=== PATIENT | female | born 1990 | race Caucasian/White ===

== ENCOUNTER → 2016-11-02 | Outpatient (CLI) | payer OTHER | LOC: OD 14:29 | PROVIDERS: ATTEND Specialist | DX: M54.5 Low back pain (principal) | CPT/HCPCS: 36415; 84702 ==

== ENCOUNTER → 2016-11-04 | Outpatient (CLI) | payer OTHER | LOC: OD 13:46 | PROVIDERS: ATTEND Specialist | DX: M54.5 Low back pain (principal) | CPT/HCPCS: 36415; 84702 ==

== ENCOUNTER 2017-06-17 12:36 | Outpatient (CLI) | payer OTHER ==
[2017-06-17 13:15] LABS: APPEARANCE,URINE CLOUDY; BILIRUBIN,URINE NEGATIVE (NEGATIVE); COLOR,URINE YELLOW; GLUCOSE, URINE NEGATIVE (NEGATIVE); KETONES,URINE NEGATIVE (NEGATIVE); LEUKOCYTE ESTERASE,URINE LARGE (NEGATIVE); NITRITE,URINE NEGATIVE (NEGATIVE); PROTEIN,URINE NEGATIVE (NEGATIVE); URINE SPECIFIC GRAVITY 1.018; UROBILINOGEN,URINE NEGATIVE mg/dL (<2.0)
[2017-06-17 13:36] LABS: URINE AMPHETAMINES SCREEN NEGATIVE; URINE BARBITURATES SCREEN NEGATIVE; URINE BENZODIAZEPINES SCREEN NEGATIVE; URINE COCAINE SCREEN NEGATIVE; URINE MARIJUANA (THC) SCREEN NEGATIVE; URINE METHADONE SCREEN NEGATIVE; URINE PHENCYCLIDINE SCREEN NEGATIVE
--- NOTE | 2017-06-17 13:43 | Non Stress Test Report ---
Non Stress Test Datetime Report Generated by CPN: 06/17/2017 13:42 DEMOGRAPHIC EGA NST: 37.4 INDICATION Indication for Study: Decreased Movement MONITORING Monitor Explained: Monitor Explained; Test Explained Time on Monitor: 06/17/2017 13:00 Time off Monitor: 06/17/2017 13:25 NST Duration: 25 NST INTERVENTIONS NST Interventions: PO Hydration; Reposition Patient Physician Notified NST: Dr. Song BABY A: [id number] BABY A Movement : Present Contraction Frequency : None FHR Baseline : 135 Accelerations : 15X15 Decelerations : None Variability : Moderate 6-25bpm NST Review: Meets Criteria for Reactive NST NST Review and Verified By : Damion ANDREA NST Results: Reactive NST REPORT Report Trigger: Send Report
--- NOTE | 2017-06-17 14:12 | RADIOLOGY REPORT (SQ) ---
EXAM DESCRIPTION: U/S PROFILE W/O STRESS COMPLETED DATE/TIME: 06/17/2017 1:55 pm REASON FOR STUDY: decreased FM, Need BPP please COMPARISON: None. TECHNIQUE: Limited corcoran-scale realtime and static images of the fetus to measure specified parameter s. LIMITATIONS: None. FINDINGS: HEART RATE: 149 beats per minute. GRICELDA: 23 cm. BREATHING MOVEMENT: 2 points. MOVEMENT: 2 points. POSTURE AND TONE: 2 points. QUALITATIVE GRICELDA: 2 points. OTHER: No other significant finding. IMPRESSION: BIOPHYSICAL PROFILE: 01/04. Trimester of : Third - 28 weeks to delivery COMMENT: BREATHING MOVEMENTS: 2 POINTS: PRESENT 0 POINTS: ABSENT MOTION: 2 POINTS: PRESENT 0 POINTS: ABSENT TONE: 2 POINTS: PRESENT 0 POINTS: ABSENT AMNIOTIC FLUID VOLUME: 2 POINTS: LARGEST POCKET GREATER THAN 2 CM DEPTH. 0 POINTS: NO POCKET OF 2 CM. TECHNICAL DOCUMENTATION: JOB ID: [id number] [employer]- All Rights Reserved
== END 2017-06-17 14:15 | disposition home or self-care (01) ==
LOC: LC 12:36
PROVIDERS: ATTEND Student in an Organized Health Care Education/Training Program
PROC: 4A1HXCZ Monitoring of Products of Conception, Cardiac Rate, External Approach (ICD-10-PCS; principal; 2017-06-17)
DX: O36.8130 Decreased fetal movements, third trimester, not applicable or unspecified (principal); Z3A.37 37 weeks gestation of pregnancy
CPT/HCPCS: 76819; 80307; 81001

== ENCOUNTER 2017-06-23 09:22 | Outpatient (CLI) | payer OTHER ==
--- NOTE | 2017-06-23 09:55 | Non Stress Test Report ---
Non Stress Test Datetime Report Generated by CPN: 06/23/2017 09:54 DEMOGRAPHIC EGA NST: 38.3 INDICATION Indication for Study: Ordered by Provider Indication for Study (NST) Other: Non reactive in office MONITORING Monitor Explained: Monitor Explained; Test Explained; Patient Verbalized Understanding Time on Monitor: 06/23/2017 09:32 NST INTERVENTIONS NST Interventions: PO Hydration Physician Notified NST: Floyd BABY A: [id number] BABY A Movement : Present Contraction Frequency : 0 FHR Baseline : 125 Accelerations : 15X15 Decelerations : None Variability : Moderate 6-25bpm NST Review: Meets Criteria for Reactive NST NST Review and Verified By : D Bellavance RN NST Results: Reactive NST REPORT Report Trigger: Send Report
[2017-06-23 10:28] LABS: APPEARANCE,URINE SLIGHTLY-CLOUDY; BILIRUBIN,URINE NEGATIVE (NEGATIVE); COLOR,URINE YELLOW; GLUCOSE, URINE NEGATIVE (NEGATIVE); KETONES,URINE NEGATIVE (NEGATIVE); LEUKOCYTE ESTERASE,URINE SMALL (NEGATIVE); NITRITE,URINE NEGATIVE (NEGATIVE); PROTEIN,URINE NEGATIVE (NEGATIVE); URINE SPECIFIC GRAVITY 1.018; UROBILINOGEN,URINE NEGATIVE mg/dL (<2.0)
[2017-06-23 10:38] LABS: ABSOLUTE LYMPHOCYTES (AUTO) 1.8 10^3/uL (0.5-4.7); ABSOLUTE MONOCYTES (AUTO) 0.7 10^3/uL (0.1-1.4); ABSOLUTE NEUT (AUTO) 8.6 10^3/uL (1.7-8.2); BASOPHILS % (AUTO) 0.2 % (0-2); EOSINOPHILS % (AUTO) 0.1 % (0-6); HEMATOCRIT 35.8 % (36.0-47.0); HEMOGLOBIN 12.4 g/dL (12.0-15.5); LYMPHOCYTES % (AUTO) 16.1 % (13-45); MEAN CORPUSCULAR HGB CONC 34.5 g/dL (32.0-36.0); MEAN CORPUSCULAR VOLUME 93 fl (80-97); MONOCYTES % (AUTO) 6.1 % (3-13); PLATELET COUNT 141 10^3/uL (150-450); RED BLOOD COUNT 3.86 10^6/uL (3.72-5.28); RED CELL DISTRIBUTION WIDTH 13.6 % (11.5-14.0); SEGMENTED NEUTROPHILS % (AUTO) 77.5 % (42-78); TOTAL CELLS COUNTED % (AUTO) 100 %; WHITE BLOOD COUNT 11.1 10^3/uL (4.0-10.5)
[2017-06-23 10:43] LABS: URINE AMPHETAMINES SCREEN NEGATIVE; URINE BARBITURATES SCREEN NEGATIVE; URINE BENZODIAZEPINES SCREEN NEGATIVE; URINE COCAINE SCREEN NEGATIVE; URINE MARIJUANA (THC) SCREEN NEGATIVE; URINE METHADONE SCREEN NEGATIVE; URINE PHENCYCLIDINE SCREEN NEGATIVE
[2017-06-23 10:59] LABS: ALANINE AMINOTRANSFERASE 21 U/L (9-52); ALKALINE PHOSPHATASE 104 U/L (38-126); ANION GAP 7 (5-19); ASPARTATE AMINO TRANSFERASE 17 U/L (14-36); BILIRUBIN,DIRECT 0.2 mg/dL (0.0-0.4); BILIRUBIN,TOTAL 0.4 mg/dL (0.2-1.3); BLOOD UREA NITROGEN 9 mg/dL (7-20); CALCIUM 8.9 mg/dL (8.4-10.2); CARBON DIOXIDE 22 mmol/L (22-30); CHLORIDE 107 mmol/L (98-107); GLUCOSE 121 mg/dL (75-110); LDH 369 U/L (313-618); POTASSIUM 4.2 mmol/L (3.6-5.0); TOTAL PROTEIN 5.4 g/dL (6.3-8.2); URIC ACID 4.8 mg/dL (2.5-6.2)
[2017-06-23 11:08] LABS: UR PRO/CREAT RATIO RESULT 0.1 mg/mg (0.0-0.2); URINE CREATININE 122.5 mg/dL (16-327); URINE PROTEIN 7.7 mg/dL (<12)
== END 2017-06-23 11:20 | disposition home or self-care (01) ==
LOC: LC 09:22
PROVIDERS: ATTEND Obstetrics & Gynecology
PROC: 4A1HXCZ Monitoring of Products of Conception, Cardiac Rate, External Approach (ICD-10-PCS; principal; 2017-06-23)
DX: Z36.89 Encounter for other specified antenatal screening (principal); Z3A.38 38 weeks gestation of pregnancy
CPT/HCPCS: 36415; 59025; 80053; 80307; 81001; 82570; 83615; 84156; 84550; 85025

== ENCOUNTER 2017-07-11 06:28 | Inpatient (IN) | payer OTHER ==
[2017-07-11] MEDS ORDERED: PENICILLIN G POTASSIUM 5,000,000 UNIT in DEXTROSE 5%-WATER 100 ML IV ONE (06:30)
[2017-07-11] MEDS ORDERED: NORMAL SALINE IV PRN (06:30)
[2017-07-11] MEDS ORDERED: RINGERS SOLUTION,LACTATED 300 ML IV ONE (06:30)
[2017-07-11] MEDS ORDERED: RINGERS SOLUTION,LACTATED 1,000 ML IV PRN (06:30)
[2017-07-11] MEDS ORDERED: OXYTOCIN IV PRN (06:30)
[2017-07-11 07:04] LABS: APPEARANCE,URINE CLOUDY; BILIRUBIN,URINE NEGATIVE (NEGATIVE); COLOR,URINE YELLOW; GLUCOSE, URINE NEGATIVE (NEGATIVE); KETONES,URINE NEGATIVE (NEGATIVE); LEUKOCYTE ESTERASE,URINE LARGE (NEGATIVE); NITRITE,URINE NEGATIVE (NEGATIVE); PROTEIN,URINE NEGATIVE (NEGATIVE); UROBILINOGEN,URINE NEGATIVE mg/dL (<2.0)
[2017-07-11] MEDS ORDERED: PENICILLIN G-K 5 MILLION UNIT VIAL ONE ×2 (07:17→15:02)
[2017-07-11 07:22] LABS: ABSOLUTE LYMPHOCYTES (AUTO) 2.6 10^3/uL (0.5-4.7); ABSOLUTE MONOCYTES (AUTO) 0.7 10^3/uL (0.1-1.4); BASOPHILS % (AUTO) 0.2 % (0-2); EOSINOPHILS % (AUTO) 0.3 % (0-6); HEMATOCRIT 38.1 % (36.0-47.0); HEMOGLOBIN 13.3 g/dL (12.0-15.5); LYMPHOCYTES % (AUTO) 22.8 % (13-45); MEAN CORPUSCULAR HEMOGLOBIN 32.1 pg (27.0-33.4); MEAN CORPUSCULAR HGB CONC 34.9 g/dL (32.0-36.0); MEAN CORPUSCULAR VOLUME 92 fl (80-97); MONOCYTES % (AUTO) 6.2 % (3-13); PLATELET COUNT 147 10^3/uL (150-450); RED BLOOD COUNT 4.13 10^6/uL (3.72-5.28); RED CELL DISTRIBUTION WIDTH 14.4 % (11.5-14.0); SEGMENTED NEUTROPHILS % (AUTO) 70.5 % (42-78); TOTAL CELLS COUNTED % (AUTO) 100 %; WHITE BLOOD COUNT 11.3 10^3/uL (4.0-10.5)
[2017-07-11 07:25] LABS: URINE AMPHETAMINES SCREEN NEGATIVE; URINE BARBITURATES SCREEN NEGATIVE; URINE BENZODIAZEPINES SCREEN NEGATIVE; URINE COCAINE SCREEN NEGATIVE; URINE MARIJUANA (THC) SCREEN NEGATIVE; URINE METHADONE SCREEN NEGATIVE; URINE PHENCYCLIDINE SCREEN NEGATIVE
[2017-07-11 07:39] LABS: ALANINE AMINOTRANSFERASE 29 U/L (9-52); ALBUMIN 3.6 g/dL (3.5-5.0); ALKALINE PHOSPHATASE 130 U/L (38-126); ANION GAP 10 (5-19); ASPARTATE AMINO TRANSFERASE 24 U/L (14-36); BILIRUBIN,DIRECT 0.3 mg/dL (0.0-0.4); BILIRUBIN,TOTAL 0.5 mg/dL (0.2-1.3); BLOOD UREA NITROGEN 9 mg/dL (7-20); CALCIUM 9.9 mg/dL (8.4-10.2); CARBON DIOXIDE 19 mmol/L (22-30); CHLORIDE 107 mmol/L (98-107); GLUCOSE 99 mg/dL (75-110); LDH 421 U/L (313-618); POTASSIUM 4.1 mmol/L (3.6-5.0); SODIUM 135.6 mmol/L (137-145); TOTAL PROTEIN 6.3 g/dL (6.3-8.2); URIC ACID 5.5 mg/dL (2.5-6.2)
[2017-07-11] MEDS ORDERED: FLUCONAZOLE 100 MG TABLET PO ONE (10:30)
[2017-07-11] MEDS ORDERED: PENICILLIN G POTASSIUM 2,500,000 UNIT in DEXTROSE 5%-WATER 50 ML IV SCH (10:30)
[2017-07-11] MEDS ORDERED: LIDOCAINE 1% INJ-PF (10 MG/ML) 30 ML SDV ONE (10:35)
[2017-07-11] MEDS ORDERED: MISOPROSTOL 0.2 MG TABLET ONE (10:35)
[2017-07-11] MEDS ORDERED: FLUCONAZOLE 100 MG TABLET ONE ×2 (10:35→10:41)
[2017-07-11] MEDS ORDERED: OXYTOCIN/NORMAL SALINE 20 UNIT/1,000 ML RTUINJ IV PRN ×2 (11:00→18:21)
[2017-07-11] MEDS: PENICILLIN G-K 5 MILLION UNIT VIAL IV SCH ×2 (11:17→15:09)
--- NOTE | 2017-07-11 15:07 | L&D Progress Notes ---
PROGRESS NOTES Datetime Report Generated by CPN: 07/11/2017 15:07 PROGRESS NOTE Impression: Normal Progression of Labor Procedures: Artificial ROM Plan: Continue Present Management Vital Signs : Reviewed Comment: AROM for clear fluid, continue pitocin IOL, anticipate VAGINAL EXAM Dilatation: 5 Dilatation: 4 Effacement: 90 Effacement: 80 Station: 0 Station: -2 Contractions: q2 mins Contractions: q2-3 mins MEMBRANES Membranes: Intact Amniotic Fluid Color: Clear FETUS A FHR - Baseline: 135 Monitoring: External US Variability: Moderate 6-25bpm Accelerations: 15X15 : 41.0 Estimated Weight (gm): 3200 Presentation: Vertex SIGNATURE SIGNATURE: [id number];,[id number] SIGNATURE: [id number] SIGNATURE: [id number] Assignment: Joy Song MD Signature: with User ID: [email or web address] : with User ID: [email or web address]
[2017-07-11] MEDS ORDERED: BUPIVACAINE HCL 0.25 % INJ/PF (2.5 MG/1 ML) 30 ML VIAL ONE (15:30)
[2017-07-11] MEDS ORDERED: FENTANYL/BUPIVACAINE/NS/PF 200 MCG/100 ML RTUINJ EPI ONE (15:30)
[2017-07-11] MEDS ORDERED: EPHEDRINE SULFATE INJ 50 MG/1 ML AMPULE ONE (15:30)
[2017-07-11] MEDS ORDERED: HYDROXYZINE PAMOATE 50 MG CAPSULE PO ONE (16:35)
[2017-07-11] MEDS ORDERED: HYDROXYZINE PAMOATE 50 MG CAPSULE ONE (16:40)
[2017-07-11] MEDS ORDERED: PROMETHAZINE HCL INJ 25 MG/1 ML VIAL IV PRN (18:21)
[2017-07-11] MEDS ORDERED: GLYCERIN/WITCH HAZEL LEAF 1 EACH MED..PAD TP PRN (18:21)
[2017-07-11] MEDS ORDERED: MAGNESIUM HYDROXIDE SUSP 30 ML UDCUP PO PRN (18:21)
[2017-07-11] MEDS ORDERED: ZOLPIDEM TARTRATE 5 MG TABLET PO PRN (18:21)
[2017-07-11] MEDS ORDERED: NA PHOS,M-B/NA PHOS,DI-BA (ADULT) 133 ML ENEMA PR PRN (18:21)
[2017-07-11] MEDS ORDERED: DIBUCAINE 1% OINTMENT 28 GM TP PRN (18:21)
[2017-07-11] MEDS ORDERED: MEASLES,MUMPS&RUBELLA VACC/PF 0.5 ML VIAL SUBCUT PRN (18:21)
[2017-07-11] MEDS ORDERED: PROMETHAZINE HCL 25 MG TABLET PO PRN (18:21)
[2017-07-11] MEDS ORDERED: ACETAMINOPHEN 325 MG TABLET PO PRN (18:21)
[2017-07-11] MEDS ORDERED: ACETAMINOPHEN WITH CODEINE #3 TABLET PO PRN ×2 (18:21)
[2017-07-11] MEDS ORDERED: PROMETHAZINE HCL 25 MG SUPP.RECT PR PRN (18:21)
[2017-07-11] MEDS ORDERED: DIPH/PERTUSS(ACELL)/TETANUS VAC/PF 0.5 ML SYR (>=10YO) IM PRN (18:21)
[2017-07-11] MEDS ORDERED: PSEUDOEPHEDRINE HCL 30 MG TABLET PO PRN (18:21)
[2017-07-11] MEDS ORDERED: BENZOCAINE/MENTHOL AEROSOL SPRAY 56 ML TOP PRN (18:21)
[2017-07-11] MEDS ORDERED: DIPHENHYDRAMINE HCL 25 MG CAPSULE PO PRN (18:21)
--- NOTE | 2017-07-11 19:07 | Warning Signs in Babies ---
VOD Warning Signs Datetime Report Generated by [facility]: 07/11/2017 19:07 VOD#[id number] -Warning Signs in Babies: Needs to be viewed. (07/11/2017 18:40:Rosalia Barrientos RN)
[2017-07-11] MEDS ORDERED: MISOPROSTOL 0.2 MG TABLET PR ONE (19:09)
[2017-07-11] MEDS ORDERED: IBUPROFEN 800 MG TABLET ONE (20:03)
--- NOTE | 2017-07-11 20:41 | Admission Physical ---
Datetime Report Generated by CPN: 07/11/2017 20:40 CURRENT ADMISSION Chief Complaint: Scheduled Induction of Labor Indication for Induction: Post Dates Indication for Induction: Term, Intrauterine Admit Plan: Admit to Unit; Initiate Labor Protocol ALLERGIES Medication Allergies: No Medication Allergies: No Known Allergies (07/11/2017) Medication Allergies: No Known Allergies (06/17/2017) Latex: Latex Allergies Food Allergies: N/A Environmental Allergies: N/A OBSTETRICAL HISTORY EDC: 07/04/2017 00:00 : 1 Para: 0 Term: 0 : 0 SAB: 0 IAB: 0 Ectopic: 0 Livin Cesareans: 0 VBACs: 0 Multiple Births: 0 Gestational Diabetes: No Rh Sensitization: No Incompetent Cervix: No AMERICO: No Infertility: No ART Treatment: No Uterine Anomaly: No IUGR: No Hx Previous C/S: No Macrosomia: No Hx Loss/Stillborn: No PIH: No Hx : No Placenta Previa/Abruption: No Depression/PP Depression: No PTL/PROM: No Post Hemorrhage: No Current Procedures: Ultrasound; NST Obstetrical History Comments: G1 - Current SEE RECORDS Alcohol: No Marijuana : No Cocaine: No Other Illicit Drugs: No Cigarettes: Former Smoker. [id number] Cigarette Comments: Smoked when she was younger MEDICAL HISTORY Diabetes: No Blood Transfusion: No Pulmonary Disease (Asthma, TB): No Breast Disease: No Hypertension: No Book Shelver Surgery: No Heart Disease: No Hosp/Surgery: No Autoimmune Disorder: No Anesthetic Complications: No Kidney Disease: No Abnormal Pap Smear: Yes Neuro/Epilepsy: No Psychiatric Disorders: No Other Medical Diseases: No Hepatitis/Liver Disease: No Significant Family History: No Varicosities/Phlebitis: No Trauma/Violence : No Thyroid Dysfunction: No Medical History Comments: LGSIL pap 10/28/16 INFECTIOUS HISTORY Gonorrhea: No Genital Herpes: Yes Chlamydia: No Tuberculosis: No Syphilis: No Hepatitis: No HIV/AIDS Exposure: No Rash or Viral Illness: No HPV: No Infectious History Comments: On Valtrex as of 06/06/2017 PHYSICAL EXAM General: Normal HEENT: Normal Neurologic: Normal Thyroid: Deferred Heart: Normal Lungs: Normal Breast: Deferred Back: Normal Abdomen: Normal Genitourinary Exam: Normal Extremities: Normal DTRs: Deferred Pelvic Type: Adequate Physical Exam Comments: speculum exam and exam of external genitalia negitive for lesions. Vital Signs: Reviewed VAGINAL EXAM Dilatation: 5 Dilatation: 4 Effacement: 90 Effacement: 80 Station: 0 Station: -2 Contraction Comments: q2 mins Contraction Comments: q2-3 mins MEMBRANES Membranes: Intact Amniotic Fluid Color: Clear FETUS A EGA: 41.0 Monitoring: External US FHR- Baseline: 125 Variability: Moderate 6-25bpm Accelerations: 15X15 Decelerations: None FHR Category: Category I Estimated Weight (gm): 3200 Presentation: Vertex Admit Comment: IOL at 41 weeks for elective at post dates. hx HSV-states she has been taking valtrex, denies prodromal sx, c/o vaginal itching and discharge consistent with yeast, diflucan ordered. pos GBS, pcn given q4h. anti-D positive after rhogam given. PLANS FOR LABOR AND DELIVERY Labor and Delivery: None Pain Management: Epidural Feeding Preference: Breast Benefit of Breast Feed Discussed: Yes Circumcision: N/A INFORMED CONSENT Assignment: Joy Song MD Signature: with User ID: [email or web address] : with User ID: [email or web address]
[2017-07-11] MEDS: FAMOTIDINE 20 MG TABLET PO SCH (22:05)
[2017-07-11] MEDS: IBUPROFEN 800 MG TABLET PO SCH (22:05)
[2017-07-12] MEDS: IBUPROFEN 800 MG TABLET PO SCH ×3 (05:01→21:03)
[2017-07-12 08:17] LABS: HEMATOCRIT 33.1 % (36.0-47.0); HEMOGLOBIN 11.3 g/dL (12.0-15.5); MEAN CORPUSCULAR HEMOGLOBIN 32.2 pg (27.0-33.4); MEAN CORPUSCULAR VOLUME 95 fl (80-97); PLATELET COUNT 111 10^3/uL (150-450); RED CELL DISTRIBUTION WIDTH 14.1 % (11.5-14.0); WHITE BLOOD COUNT 14.1 10^3/uL (4.0-10.5)
--- NOTE | 2017-07-12 08:20 | PDOC PROGRESS REPORT ---
Subjective-OB Progress Note for:: 07/12/17 Subjective: Sleeping, family at BS, no c/o, eating well, scant bleeding, Physical Exam (OB) Vital Signs: Temp Pulse Resp BP Pulse Ox 98.5 F 84 18 131/71 H 100 07/11/17 20:38 07/11/17 20:38 07/11/17 20:38 07/11/17 20:38 07/11/17 20:38 Intake & Output 07/11/17 07/12/17 07/13/17 06:59 06:59 06:59 Weight 97 kg - Lochia Lochia Amount: Small 10-25 ml Lochia Color: Rubra/Red - Abdomen Description: Soft, Round Hernia Present: No Fundal Description: Firm, Midline Fundal Height: u/u - u/2 Objective-Diagnostic Laboratory: 07/11/17 06:57 07/11/17 06:57 Blood Type O NEGATIVE Antibody Screen POSITIVE Assessment and Plan(PN) - Assessment and Plan (1) Depression affecting Is this a current diagnosis for this admission?: Yes (2) Group B streptococcal carriage complicating Is this a current diagnosis for this admission?: Yes (3) Herpes Is this a current diagnosis for this admission?: Yes (4) Vaginal delivery Is this a current diagnosis for this admission?: Yes - Time Spent with Patient Time with patient: Less than 15 minutes Medications reviewed and adjusted accordingly: Yes - Disposition Anticipated Discharge: Home Within: within 24 hours
[2017-07-12] MEDS: FERROUS SULFATE 325 MG TABLET PO SCH ×2 (09:38→18:16)
[2017-07-12] MEDS: DOCUSATE SODIUM 100 MG CAPSULE PO SCH ×2 (09:38→18:16)
[2017-07-12] MEDS: PRENATAL VITAMIN W DHA CAPSULE PO SCH (09:39)
[2017-07-12] MEDS: SENNOSIDES/DOCUSATE 8.6-50 MG 1 EACH TABLET PO SCH (09:39)
[2017-07-12] MEDS: FAMOTIDINE 20 MG TABLET PO SCH ×2 (09:39→21:03)
[2017-07-13] MEDS: IBUPROFEN 800 MG TABLET PO SCH (05:44)
--- NOTE | 2017-07-13 08:35 | PDOC DISCHARGE SUMMARY ---
Final Diagnosis Discharge Date: 07/13/17 - Final Diagnosis (1) Anti-D antibodies present Is this a current diagnosis for this admission?: Yes (2) Depression affecting Is this a current diagnosis for this admission?: Yes (3) Elective induction of labor planned Is this a current diagnosis for this admission?: Yes (4) Group B streptococcal carriage complicating Is this a current diagnosis for this admission?: Yes (5) Vaginal delivery Is this a current diagnosis for this admission?: Yes Discharge Data - Discharge Medication Prescriptions: Docusate Sodium [Colace 100 mg Capsule] 100 mg PO BID #60 capsule Ibuprofen [Motrin 800 mg Tablet] 800 mg PO Q8 #60 tablet Home Medications: No122/Iron/Folic Acid [ Multi Tablet] 1 tab PO DAILY 07/11/17 Valacyclovir HCl [Valtrex 500 mg Tablet] 500 mg PO BID 07/11/17 Docusate Sodium [Colace 100 mg Capsule] 100 mg PO BID #60 capsule 07/13/17 Ibuprofen [Motrin 800 mg Tablet] 800 mg PO Q8 #60 tablet 07/13/17 Reason(s) for Admission: Induction of Labor Procedures: NST Intrapartum Procedure(s): Spontaneous Vaginal Delivery Laceration-Degree: 2nd - [place] Data Baby 1 Female Weight: 4.366 kg Home with Mother: Yes Complications: No - Diagnosis Test Laboratory: Temp Pulse Resp BP Pulse Ox 98.0 F 81 18 111/67 98 07/12/17 23:27 07/12/17 23:27 07/12/17 23:27 07/12/17 23:27 07/12/17 23:27 07/11/17 07/11/17 07/12/17 06:40 06:57 07:16 RBC 4.13 3.50 L Hgb 13.3 11.3 L Hct 38.1 33.1 L Urine Opiates Screen NEGATIVE - Discharge information/Instructions Discharge Activity: Activity As Tolerated, Pelvic Rest, No tub bath Discharge Diet: Regular Disposition: HOME, SELF-CARE Follow up with: [facility] in: 4, Weeks
[2017-07-13 09:57] VITALS: BP 120/64
[2017-07-13] MEDS: PRENATAL VITAMIN W DHA CAPSULE PO SCH (10:47)
[2017-07-13] MEDS: FERROUS SULFATE 325 MG TABLET PO SCH (10:48)
[2017-07-13] MEDS: FAMOTIDINE 20 MG TABLET PO SCH (10:48)
[2017-07-13] MEDS: DOCUSATE SODIUM 100 MG CAPSULE PO SCH (10:48)
[2017-07-13] MEDS: SENNOSIDES/DOCUSATE 8.6-50 MG 1 EACH TABLET PO SCH (10:49)
--- NOTE | 2017-08-09 11:02 | Delivery Summary ---
Del Sum A-C Datetime Report Generated by CPN: 08/09/2017 11:01 DELIVERY PERSONNEL DELIVERY PERSONNEL: [id number] Delivery Doctor:: Venecia Dumont CNM Labor and Delivery Nurse:: Rosalia Barrientos RNrepair order clerk Nurse:: EMRE Mcconnell Bread And Pastry Baker/QUALITY IMPROVEMENT MANAGER: Kaylyn Burroughsaneda, ST MATERNAL INFORMATION Delivery Anesthesia: Epidural Medications After Delivery: Pitocin Bolus-Please Comment Meds After Delivery Comment: Pitocin 20 units in 1 L NS bolusing per order Estimated Blood Loss (ml): 350 Maternal Complications: None Provider Comments: REE OF VIABLE FEMALE, SPONTANEOUS CRY. LOOSE NUCHAL CORD REDUCED AFTER DELIVERY OF HEAD. CORD DOUBLE CLAMPED AND CUT BY FOB. SPONTANEOUS INTACT PLACENTA WITH 3VC. BILATERAL PERIURETHRAL LACERATIONS REPAIRED UNDER EPIDURAL ANESTHESIA. MOTHER AND STABLE IN L_D #5. CYTOTEC 1000MG GIVEN CO LABOR SUMMARY EDC: 07/04/2017 00:00 No. Babies in Womb: 1 Attempted: No Labor Anesthesia: Epidural LABOR INFORMATION Reason for Induction: Postterm Onset of Labor: 07/11/2017 15:34 Complete Dilatation: 07/11/2017 17:58 Oxytocin: Induction Group B Beta Strep: Positive Antibiotics # of Doses: 3 Antibiotics Time of Last Dose: 1506 Name of Antibiotic Given: PCN Steroids Given: None Reason Steroids Not Administered: Not Applicable MEMBRANES Membranes Rupture Method: Artificial Rupture of Membranes: 07/11/2017 14:35 Length of Rupture (hr): 3.75 Amniotic Fluid Color: Clear Amniotic Fluid Amount: Moderate Amniotic Fluid Amount: None Amniotic Fluid Odor: Normal STAGES OF LABOR Stage 1 hr: 2 Stage 1 min: 24 Stage 2 hr: 0 Stage 2 min: 22 Stage 3 hr: 0 Stage 3 min: 10 Total Time in Labor hr: 2 Total Time in Labor min: 56 VAGINAL DELIVERY Episiotomy: None Laceration #1: Periurethral Laceration Extension #1: N/A Other Laceration: bilateral periurethral with repair Laceration Repair: Yes Laceration Repair Note: bilateral periurethral repaired Sponge Count Correct: Yes Sharps Count Correct: Yes CSECTION DELIVERY Primary Indication: N/A Secondary Indication: N/A CSection Incidence: N/A Labor: N/A Elective: N/A CSection Incision: N/A BABY A INFORMATION Infant Delivery Date/Time: 07/11/2017 18:20 Method of Delivery: Vaginal Born in Route : No : N/A Forceps: N/A Vacuum Extraction: N/A Shoulder Dystocia : No PRESENTATION/POSITION BABY A Presentation: Cephalic Cephalic Presentation: Vertex Vertex Position: Right Occipital Anterior Breech Presentation: N/A PLACENTA INFORMATION BABY A Placenta Delivery Time : 07/11/2017 18:30 Placenta Method of Delivery: Expressed Placenta Status: Delivered SCORES BABY A Heart Rate 1 min: >100 bpm Resp Effort 1 min: Good Cry Reflex Irritability 1 min: Cough or Sneeze or Pulls Away Muscle Tone 1 min: Active Motion Color 1 min: Body [place], Extremities Blue Resuscitation Effort 1 min: Tactile Stimulation SCORE 1 MIN: 9 Heart Rate 5 min: >100 bpm Resp Effort 5 min: Good Cry Reflex Irritability 5 min: Cough or Sneeze or Pulls Away Muscle Tone 5 min: Active Motion Color 5 min: Completely [place] Resuscitation Effort 5 min: Tactile Stimulation SCORE 5 MIN: 10 INFORMATION BABY A Gestational Age at Delivery: 41.0 Gestational Status: Late Term- 41- 41.6 Weeks Infant Outcome : Liveborn Condition : Stable Sex: Female IDENTIFICATION BABY A Verification Date/Time: 07/11/2017 18:34 ID Band Number: [id number] Mother's Name Verified: Yes RN Verifying : C. shorty, RN/ D. Spruce WEIGHT/LENGTH BABY A Infant Birthweight (gm): 4355 Infant Weight (lb): 9 Weight (oz): 10 Infant Length (in): 21.00 Infant Length (cm): 53.34 CORD INFORMATION BABY A No. Cord Vessels: 3 Nuchal Cord : Around Neck x1, Loose Cord Blood Taken: Yes-For Eval (Mom's Blood Type - or O+) Suction: None ASSESSMENT BABY A Infant Complications: None Physical Findings at Delivery: Within Normal Limits Infant Respirations: Appears Normal Skin to Skin: Yes Skin to Skin: Yes Skin to Skin Time (min): 30 Utility Service Worker/ALS Called : No Care By: Marianne Guerrero RN Transferred To: Remains with Mother BABY B INFORMATION : N/A SIGNATURES Assignment: Joy Song MD Signature: with User ID: [email or web address] : with User ID: [email or web address] : I was personally available for consultation and serving as supervising physician for the MLP. : I was personally available for consultation and serving as supervising physician for the MLP. : I was personally available for consultation and serving as supervising physician for the MLP.
== END 2017-07-13 13:00 | disposition home or self-care (01) | DRG 774 ==
LOC: LR 06:28 → 2N 20:30
PROVIDERS: ADMIT Obstetrics & Gynecology; ATTEND Obstetrics & Gynecology
PROC: 10E0XZZ Delivery of Products of Conception, External Approach (ICD-10-PCS; principal; 2017-07-11)
PROC: 0UQMXZZ Repair Vulva, External Approach (ICD-10-PCS; 2017-07-11)
PROC: 4A1HXCZ Monitoring of Products of Conception, Cardiac Rate, External Approach (ICD-10-PCS; 2017-07-11)
PROC: 3E0234Z Introduction of Serum, Toxoid and Vaccine into Muscle, Percutaneous Approach (ICD-10-PCS; 2017-07-11)
DX: O98.32 Other infections with a predominantly sexual mode of transmission complicating childbirth (principal); O69.81X0 Labor and delivery complicated by cord around neck, without compression, not applicable or unspecified; O71.82 Other specified trauma to perineum and vulva; O48.0 Post-term pregnancy; A60.00 Herpesviral infection of urogenital system, unspecified; O99.824 Streptococcus B carrier state complicating childbirth; O99.344 Other mental disorders complicating childbirth; F32.9 Major depressive disorder, single episode, unspecified; O26.893 Other specified pregnancy related conditions, third trimester; Z79.899 Other long term (current) drug therapy; Z67.91 Unspecified blood type, Rh negative; Z87.891 Personal history of nicotine dependence; Z67.41 Type O blood, Rh negative; Z3A.41 41 weeks gestation of pregnancy; Z37.0 Single live birth
CPT/HCPCS: 36415; 80053; 80307; 81005; 83615; 84550; 85025; 85027; 85461; 86592; 86850; 86870; 86900; 86901; J2540; J2790; J3490